=== PATIENT | male | born 1955 | race Caucasian/White ===

== ENCOUNTER 2018-09-26 07:19 | Emergency (ER) | payer OTHER ==
[2018-09-26 07:29] VITALS: TEMP 98; BMI 27.6
[2018-09-26] MEDS ORDERED: FAMOTIDINE 20 MG/50 ML IVPB 20 MG/50 ML MG IVPB ONE ×2 (07:58→08:29)
[2018-09-26] MEDS ORDERED: SODIUM CHLORIDE 1,000 ML IV STA ×2 (07:58→10:15)
[2018-09-26] MEDS ORDERED: ACETAMINOPHEN 1000 MG/100 ML VIAL (NON FORMULARY) IVPB ONE (07:58)
[2018-09-26] MEDS ORDERED: ONDANSETRON 4 MG/2 ML VIAL IVPUSH ONE ×2 (07:58→10:15)
[2018-09-26] MEDS ORDERED: ACETAMINOPHEN INJECTION 100 ML IVPB ONE (08:28)
[2018-09-26] MEDS ORDERED: ONDANSETRON 4 MG/2 ML VIAL ONE ×2 (08:29→10:16)
[2018-09-26 08:40] LABS: BASO % 0.2 % (0-2.0); EOS % 0.1 % (0-4.5); HEMATOCRIT 42.4 % (35.4-49); HEMOGLOBIN 14.4 GM/dL (11.7-16.9); LYMPH % 3.8 % (8-40); MCH 27.6 pg (25.7-33.7); MEAN CELL VOLUME 81.2 fl (80-96); MEAN PLT VOLUME 9.7 fl (7.5-11.1); MONO % 3.8 % (3.8-10.2); NEUT % 92.1 % (42.8-82.8); PLATELET COUNT 109 K/MM3 (134-434); RBC 5.22 M/mm3 (4.00-5.60); RDW 14.4 % (11.9-15.9); WHITE BLOOD COUNT 8.3 K/mm3 (4.0-10.0)
[2018-09-26 08:50] LABS: INR 1.18 (0.83-1.09)
[2018-09-26 09:02] LABS: ALBUMIN 4.2 g/dl (3.4-5.0); ALK PHOS 77 U/L (45-117); ANION GAP 6 MMOL/L (8-16); BILIRUBIN,TOTAL 0.6 mg/dL (0.2-1); BLOOD UREA NITROGEN 22 mg/dL (7-18); CALCIUM 9.1 mg/dL (8.5-10.1); CHLORIDE 100 mmol/L (98-107); CO2 28 mmol/L (21-32); CREATININE 0.9 mg/dL (0.55-1.3); GLUCOSE,RANDOM 117 mg/dL (74-106); LIPASE 196 U/L (73-393); POTASSIUM 4.3 mmol/L (3.5-5.1); SGOT/AST 35 U/L (15-37); SGPT/ALT 38 U/L (13-61); SODIUM 135 mmol/L (136-145)
--- NOTE | 2018-09-26 09:59 | PDOC ---
History of Present Illness - General Chief Complaint: Nausea/Vomiting Stated Complaint: FOOD POISONING Time Seen by Provider: 09/26/18 07:51 History Source: Patient Exam Limitations: No Limitations - History of Present Illness Initial Comments: 09/26/18 10:00 Patient is a 63M with history of afib (on xarelto), htn, s/p pacemaker placement (patient states for afib) here today complaining of nausea and vomiting that onset acutely last night. Patient believes that he has food poisoning. Patient denies fevers, chills, blood/bile in vomit. Patient endorses associated LUQ abdominal pain that onset after multiple episodes of vomiting. Endorses a "light" pain in his left lower chest that is worsened with palpation. Denies dysuria, diarrhea, constipation. Denies prior abdominal surgeries. Denies SOB. Past History - Past Medical History Allergies/Adverse Reactions: Allergies Allergy/AdvReac Type Severity Reaction Status Date / Time No Known Allergies Allergy Verified 09/26/18 07:29 Home Medications: Ambulatory Orders Digoxin [Lanoxin -] 0.125 mg PO DAILY 06/13/16 Lisinopril [Zestril] 20 mg PO BID 06/13/16 Methadone HCl [Dolophine HCl] 90 mg PO DAILY 06/13/16 Metoprolol Succinate [Toprol Xl -] 100 mg PO DAILY 06/13/16 Rivaroxaban [Xarelto -] 20 mg PO DAILY 06/13/16 Spironolactone [Aldactone] 25 mg PO DAILY 06/13/16 Anemia: No Asthma: No Cancer: No Cardiac Disorders: Yes (ARRYTHMIA) CVA: No COPD: No Dementia: No Diabetes: No GI Disorders: No Disorders: No HTN: Yes (NEW ONSET) Liver Disease: Yes Seizures: No Thyroid Disease: No - Surgical History Cardiac Surgery: Yes (PACEMAKER-[employer]) - Immunization History Td Vaccination: Yes - Suicide/Smoking/Psychosocial Hx Smoking Status: No Smoking History: Never smoked Number of Cigarettes Smoked Daily: 0 Information on smoking cessation initiated: No Hx Alcohol Use: No (OCCASIONAL) Drug/Substance Use Hx: Yes (past) Substance Use Type: Cocaine, Heroin, Marijuana Hx Substance Use Treatment: (ON METHADONE NOW) Review of Systems - Review of Systems Comments:: 09/26/18 10:02 GENERAL/CONSTITUTIONAL: No fever or chills. No weakness. HEAD, EYES, EARS, NOSE AND THROAT: No change in vision. No ear pain or discharge. No sore throat. CARDIOVASCULAR: +chest pain no shortness of breath RESPIRATORY: No cough, wheezing, or hemoptysis. GASTROINTESTINAL: +nausea, +vomiting, no diarrhea or constipation. GENITOURINARY: No dysuria, frequency, or change in urination. MUSCULOSKELETAL: No joint or muscle swelling or pain. No neck or back pain. SKIN: No rash NEUROLOGIC: No headache, vertigo, loss of consciousness, or change in strength/ sensation. ENDOCRINE: No increased thirst. No abnormal weight change HEMATOLOGIC/LYMPHATIC: No anemia, easy bleeding, or history of blood clots. ALLERGIC/IMMUNOLOGIC: No hives or skin allergy. *Physical Exam - Vital Signs Last Vital Signs Temp Pulse Resp BP Pulse Ox 98 F 90 18 172/92 H 96 09/26/18 07:27 09/26/18 07:27 09/26/18 07:27 09/26/18 07:27 09/26/18 07:27 - Physical Exam Comments: 09/26/18 10:03 GENERAL: Awake, alert, and fully oriented, vomiting during examination HEAD: No signs of trauma, normocephalic, atraumatic EYES: PERRLA, EOMI, sclera anicteric, conjunctiva clear ENT: Auricles normal inspection, hearing grossly normal, nares patent, oropharynx clear without exudates. Moist mucosa NECK: Normal ROM, supple, no lymphadenopathy, JVD, or masses LUNGS: No distress, speaks full sentences, clear to auscultation bilaterally HEART: Regular rate and rhythm, normal S1 and S2, no murmurs, rubs or gallops, peripheral pulses normal and equal bilaterally. ABDOMEN: Soft, +LUQ tenderness, normoactive bowel sounds. No guarding, no rebound. No masses EXTREMITIES: Normal inspection, Normal range of motion, no edema. No clubbing or cyanosis. NEUROLOGICAL: Cranial nerves II through XII grossly intact. Normal speech, normal gait, no focal sensorimotor deficits SKIN: Warm, Dry, normal turgor, no rashes or lesions noted. Moderate Sedation - Procedure Monitoring Vital Signs: Procedure Monitoring Vital Signs Temperature 98 F 09/26/18 07:27 Pulse Rate 90 09/26/18 07:27 Respiratory Rate 18 09/26/18 07:27 Blood Pressure 172/92 H 02/24/19 07:27 O2 Sat by Pulse Oximetry (%) 96 09/26/18 07:27 ED Treatment Course - LABORATORY CBC & Chemistry Diagram: 09/26/18 08:19 09/26/18 08:19 - ADDITIONAL ORDERS Additional order review: Laboratory Results 09/26/18 09/26/18 09/26/18 08:19 08:19 08:19 PT with INR 14.00 H INR 1.18 H Sodium 135 L Potassium 4.3 Chloride 100 Carbon Dioxide 28 Anion Gap 6 L BUN 22 H Creatinine 0.9 Creat Clearance w eGFR > 60 Random Glucose 117 H Calcium 9.1 Total Bilirubin 0.6 AST 35 ALT 38 Alkaline Phosphatase 77 Creatine Kinase 94 Troponin I < 0.02 Total Protein 8.0 Albumin 4.2 Lipase 196 09/26/18 08:19 RBC 5.22 MCV 81.2 MCHC 34.0 RDW 14.4 MPV 9.7 Neutrophils % 92.1 H D Lymphocytes % 3.8 L D Monocytes % 3.8 Eosinophils % 0.1 D Basophils % 0.2 - Medications Given in the ED: ED Medications Discontinued Medications Generic Name Dose Route Start Last Admin Trade Name Freq PRN Reason Stop Dose Admin Acetaminophen 1,000 mg 09/26/18 07:58 09/26/18 08:57 Ofirmev Injection - IVPB 09/26/18 07:59 1,000 mg ONCE ONE Administration Famotidine/Sodium Chloride 20 mg in 50 mls @ 100 mls/hr 09/26/18 07:58 08:58 Pepcid 20 Mg Premixed Ivpb - IVPB 09/26/18 08:27 100 mls/hr ONCE ONE Administration Sodium Chloride 1,000 mls @ 1,000 mls/hr 09/26/18 07:58 09/26/18 08:57 Normal Saline - IV 09/26/18 08:57 1,000 mls/hr ASDIR STA Administration Ondansetron HCl 4 mg 09/26/18 07:58 09/26/18 08:58 Zofran Injection IVPUSH 09/26/18 07:59 4 mg ONCE ONE Administration Medical Decision Making - Medical Decision Making 09/26/18 10:04 Patient is 63M with history of afib, htn, s/p pacemaker placement here today with nausea, vomiting. Vitals normal and stable. EKG shows afib with rate of 63. No st elevations/depressions. Normal axis. No significant t wave abnormalities. DDx includes, but is not limited to: pancreatitis, gastritis, acs (low risk). Will evaluate with cxr, abd/cardiac labs. Will treat with fluids, zofran, pepcid , tylenol. 09/26/18 10:07 CBC, CMP, trop, lipase normal. Patient states that he feels better. Will PO challenge. 09/26/18 10:44 Failed PO challenged. Given additional zofran. Still nauseated and vomiting. Will try reglan. 09/26/18 12:44 CT normal. Re-challenged. Kept water down for 20 minutes, asking to go home. Soft, nontender abdomen. Will discharge with zofran. Given strict return precautions. 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 Please return if you have any new, worsening or concerning symptoms, especially repeated vomiting, fever and pain. - Post Discharge Activity Forms/Work/School Notes: Back to Work
[2018-09-26] MEDS ORDERED: METOCLOPRAMIDE HCL INJECTION 10 MG/2 ML VIAL IVPUSH ONE (10:40)
[2018-09-26] MEDS ORDERED: METOCLOPRAMIDE HCL INJECTION 10 MG/2 ML VIAL ONE (10:41)
--- NOTE | 2018-09-26 10:57 | PDOC ---
Attending Attestation - Resident Resident Name: Gaurang Moore - ED Attending Attestation I have performed the following: I have examined & evaluated the patient, The case was reviewed & discussed with the resident, I agree w/resident's findings & plan, Exceptions are as noted - HPI HPI: 09/26/18 10:53 63 yo M h/o afib, pacer, on digoxin, methadone here with c/o n/v since last pm. pt states multiple epsiodes of nonbloody nonbilious vomiting. denies vertigo. mild left upper quadrant pain. no mod factors. no sick contacts. no travel. states has taken methadone only as prescribed is givein one week supply at time. took yesterday, did not take today. no fever, does have chills. no other compliants. no cp no sob. 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 - Physicial Exam PE: 09/26/18 10:54 awake alert lungs clear bilaterally heart rrr no mrg abd soft mild luq ttp. no rebound no guarding. no cva tenderness. ext wwp. nuero alert oriented x 3. no nystagmus. gait normal. skin warm and dry. - Medical Decision Making 09/26/18 10:55 differential viral gastritis, ( multiple cases seen in ed recent weeks), gastric outlet obstruction, hypokalemia, dehydration. digoxin toxicity. methadone or other narcotic withdrawal although pt denies noncompliance or additional narcotic use. pna, atypical angina. zofran fluids labs lipase dig level ad cxr ekg. all unremarkable. pt with unrelenting emesis. ct a/p ordered r/o gastric outlet obstruciton or other inatrabominal abnormality. will likely require admission for intractable n/v. 09/26/18 13:15 after dose of reglan, pt tolerating PO ct a/p unremarkable except fatty liver and fatty pancrease. min dilat loops of bowel without obstruction. likley related to pt viral enteritis. labs normal. because feeling better, requesting dc home. dc close followup. 09/26/18 13:18
[2018-09-26 10:59] VITALS: BP 152/90; PULSE 82
[2018-09-26 12:56] LABS: ANISOCYTOSIS 0; HELMET CELLS 0; HOWELL-JOLLY BODIES 0; MACROCYTOSIS 0; OVALOCYTE 0; PLATELET ESTIMATE NORMAL; ROULEAU 0; SICKELED CELLS 0; TARGET CELLS 0; TEAR DROP CELLS 0; TOXIC GRANULATION 0
--- NOTE | 2018-09-26 22:04 | EKG ---
Test Reason : Blood Pressure : / mmHG Vent. Rate : 063 BPM Atrial Rate : 220 BPM P-R Int : 000 ms QRS Dur : 094 ms QT Int : 408 ms P-R-T Axes : 000 034 001 degrees QTc Int : 417 ms ATRIAL FIBRILLATION ABNORMAL ECG WHEN COMPARED WITH ECG OF 20-JAN-2012 00:21, ATRIAL FIBRILLATION HAS REPLACED SINUS RHYTHM Confirmed by MARLEN HUNTER MD ([id number]) on 09/26/2018 10:04:28 PM Referred By: Confirmed By:MARLEN HUNTER MD
== END 2018-09-26 12:53 | disposition home or self-care (01) ==
LOC: JER 07:19
PROC: 3E033GC Introduction of Other Therapeutic Substance into Peripheral Vein, Percutaneous Approach (ICD-10-PCS; principal; 2018-09-26)
PROC: 3E033GC Introduction of Other Therapeutic Substance into Peripheral Vein, Percutaneous Approach (ICD-10-PCS; 2018-09-26)
PROC: 3E033GC Introduction of Other Therapeutic Substance into Peripheral Vein, Percutaneous Approach (ICD-10-PCS; 2018-09-26)
PROC: 3E033NZ Introduction of Analgesics, Hypnotics, Sedatives into Peripheral Vein, Percutaneous Approach (ICD-10-PCS; 2018-09-26)
DX: T62.8X1A Toxic effect of other specified noxious substances eaten as food, accidental (unintentional), initial encounter (principal); R11.2 Nausea with vomiting, unspecified; Y92.89 Other specified places as the place of occurrence of the external cause; I10 Essential (primary) hypertension; I48.91 Unspecified atrial fibrillation; Z79.01 Long term (current) use of anticoagulants; Z95.0 Presence of cardiac pacemaker
CPT/HCPCS: 36415; 71045-TC-FY; 74177-TC; 80053; 80162; 82550; 83690; 84484; 85025; 85610; 93005; 93010; 96365; 96375; 96376; 99283-25; J0131; J7030

== ENCOUNTER 2021-08-06 02:37 | Emergency (ER) | payer OTHER ==
[2021-08-06 03:37] VITALS: BP 133/77; PULSE 74; TEMP 97.7; BMI 29.8
== END 2021-08-06 04:25 | disposition home or self-care (01) ==
LOC: JER 02:37
DX: R09.81 Nasal congestion (principal); R04.0 Epistaxis
CPT/HCPCS: 99283-25

== ENCOUNTER 2023-05-24 22:54 | Emergency (ER) | payer OTHER ==
[2023-05-24 23:09] VITALS: BP 151/82; PULSE 63; RESP 18; TEMP 98.1; BMI 28.5
== END 2023-05-25 00:20 | disposition home or self-care (01) ==
LOC: JER 22:54
DX: R09.81 Nasal congestion (principal); G47.9 Sleep disorder, unspecified; Z20.822 Contact with and (suspected) exposure to COVID-19
CPT/HCPCS: 0241U-QW; 99283-25

== ENCOUNTER 2023-06-15 21:04 | Emergency (ER) | payer OTHER ==
[2023-06-15 21:28] VITALS: RESP 16; BMI 28.5
[2023-06-15] MEDS ORDERED: DEXAMETHASONE SOD PHOSPHATE 10 MG/1 ML VIAL IM ONE (21:46)
[2023-06-15] MEDS ORDERED: AMOX TR/POT CLAV 875MG/125MG TABLETS (FP) PO ONE (21:47)
[2023-06-15] MEDS ORDERED: ACETAMINOPHEN 500 MG TABLET (FP) PO ONE (21:47)
[2023-06-15] MEDS ORDERED: DEXAMETHASONE SOD PHOSPHATE 10 MG/1 ML VIAL ONE (21:48)
[2023-06-15] MEDS ORDERED: ACETAMINOPHEN 650 MG/20.3 ML ORAL SOLUTION (CUPS) PO ONE (22:26)
[2023-06-15] MEDS ORDERED: CEFTRIAXONE 1,000 MG in DEXTROSE 5%-WATER - 50 ML IVPB ONE (22:35)
[2023-06-15] MEDS ORDERED: ACETAMINOPHEN 1000 MG/100 ML BAG IVPB ONE (22:40)
[2023-06-15 22:53] LABS: BASO % 0.6 % (0-2.0); EOS % 2.1 % (0-4.5); HEMATOCRIT 34.6 % (35.4-49); HEMOGLOBIN 11.6 GM/dL (11.7-16.9); LYMPH % 10.5 % (8-40); MCH 27.1 pg (25.7-33.7); MCHC 33.4 g/dl (32.0-35.9); MEAN CELL VOLUME 81.1 fl (80-96); MEAN PLT VOLUME 9.2 fl (7.5-11.1); MONO % 10.6 % (3.8-10.2); NEUT % 76.2 % (42.8-82.8); PLATELET COUNT 116 10^3/uL (134-434); RBC 4.27 M/mm3 (4.00-5.60); RDW 14.9 % (11.9-15.9); WHITE BLOOD COUNT 5.2 K/mm3 (4.0-10.0)
[2023-06-15 23:17] LABS: CHLORIDE 107 mmol/L (98-107); SODIUM 135 mmol/L (136-145)
[2023-06-15 23:19] LABS: CALCIUM 8.4 mg/dL (8.5-10.1)
[2023-06-15 23:20] LABS: ALBUMIN 3.7 g/dl (3.4-5.0); CO2 25 mmol/L (21-32); GLUCOSE,RANDOM 98 mg/dL (74-106)
[2023-06-15 23:23] LABS: CREATININE 1.3 mg/dL (0.55-1.3); SGOT/AST 73 U/L (15-37); SGPT/ALT 35 U/L (13-61)
[2023-06-15 23:24] LABS: BILIRUBIN,TOTAL 0.4 mg/dL (0.2-1); TOT PROT 7.2 g/dl (6.4-8.2)
[2023-06-15 23:26] LABS: ALK PHOS 62 U/L (45-117)
[2023-06-15 23:27] LABS: ANION GAP 3 mmol/L (4-13); POTASSIUM 7.3 mmol/L (3.5-5.1)
[2023-06-16] MEDS ORDERED: ACETAMINOPHEN INJECTION 100 ML IVPB ONE (00:16)
[2023-06-16] MEDS ORDERED: CEFTRIAXONE 1 GM/50 ML BAG ONE (00:16)
[2023-06-16 00:26] LABS: POTASSIUM 4.5 mmol/L (3.5-5.1)
[2023-06-16 00:27] LABS: CALCIUM 9.1 mg/dL (8.5-10.1)
[2023-06-16 00:28] LABS: ALBUMIN 4.3 g/dl (3.4-5.0); BLOOD UREA NITROGEN 27.4 mg/dL (7-18)
[2023-06-16 00:31] LABS: CREATININE 1.3 mg/dL (0.55-1.3)
[2023-06-16 00:33] LABS: BILIRUBIN,TOTAL 0.8 mg/dL (0.2-1); TOT PROT 7.9 g/dl (6.4-8.2)
[2023-06-16] MEDS ORDERED: morphine CARPU-JECT 2 MG/1 ML DISP.SYRIN IVPUSH ONE (00:58)
[2023-06-16] MEDS ORDERED: MAG HYDROX/ALH/SMC/DPHA/LIDO 240 ML MOUTHWASH MM ONE (01:24)
[2023-06-16 03:16] VITALS: BP 110/68; TEMP 98.3
[2023-06-16 03:57] VITALS: PULSE 70
[2023-06-16] MEDS ORDERED: MAG HYDROX/ALH/SMC/DPHA/LIDO 240 ML MOUTHWASH MM SCH (06:00)
== END 2023-06-16 04:01 | disposition short-term general hospital (02) ==
LOC: JER 21:04
DX: R13.10 Dysphagia, unspecified (principal); H92.02 Otalgia, left ear; J02.9 Acute pharyngitis, unspecified; H66.92 Otitis media, unspecified, left ear; J38.7 Other diseases of larynx; R53.83 Other fatigue; R63.0 Anorexia
CPT/HCPCS: 0241U-QW; 36415; 70491-TC; 80053; 85025; 87651; 99285-25; J1100; Q9967